=== PATIENT | female | born 1960 | race Caucasian/White ===

== ENCOUNTER 2019-02-16 17:36 | Emergency (ER) | payer OTHER ==
[~2019-02-16] VITALS: Ht 160 cm; Wt 87.2 kg
[~2019-02-16 17:36] MED LIST: AMOX500C2 PO
[2019-02-16 17:39] VITALS: Ht 160 cm; Wt 87.2 kg
--- NOTE | 2019-02-16 19:05 | ERD ---
ER Documentation Chief Complaint Chief Complaint RT EAR PAIN X 1 DAY HPI 59-year-old female presents with complaint of right ear pain secondary to Q-tip stuck in the ear. States that the incident occurred this morning. Denies any treatments. Denies any hearing loss, fevers, chills, discharge from the ear. ROS All systems reviewed and are negative except as per history of present illness. Medications Home Meds Active Scripts Amoxicillin* (Amoxicillin*) 500 Mg Cap, 500 MG PO TID for otitis media for 10 Days, CAP Prov:VIRGINIA COWART 02/16/19 Amoxicillin* (Amoxicillin*) 500 Mg Cap, 500 MG PO TID for 10 Days, CAP Prov:VINNY GOMEZ DO 12/04/15 PMhx/Soc Hx Alcohol Use: No Hx Substance Use: No Hx Tobacco Use: No Smoking Status: Never smoker FmHx Family History: No diabetes, No coronary disease, No other Physical Exam Vitals Vital Signs Date Temp Pulse Resp B/P (MAP) Pulse Ox O2 O2 Flow FiO2 Time Delivery Rate 02/16/19 98.1 86 18 168/89 99 17:39 (115) Physical Exam Const: No acute distress Head: Atraumatic Eyes: Normal Conjunctiva ENT: Normal External Ears, Nose and Mouth. Right ear is occluded with cotton. No blood or discharge noted. TM is not visualized. Neck: Full range of motion. No meningismus. Resp: Clear to auscultation bilaterally Cardio: Regular rate and rhythm, no murmurs Abd: Soft, non tender, non distended. Normal bowel sounds Skin: No petechiae or rashes Back: No midline or flank tenderness Ext: No cyanosis, or edema Neur: Awake and alert Psych: Normal Mood and Affect Procedures/MDM MDM: Cotton was successfully removed from the ear using alligator forceps. There was a ruptured TM noted. There is no discharge or blood noted. Patient was given Rx for amoxicillin and advised to follow-up with ENT within 24 hours. Low suspicion for retained foreign body, malignant otitis externa, or any other emergent condition. Patient discharged with strict ER precautions. Patient advised to follow up with PMD. All questions answered at discharge. Departure Diagnosis: Primary Impression: Foreign body in ear Additional Impression: Right otitis media Condition: Stable VIRGINIA COWART February 16, 2019 19:05
[2019-02-16] MEDS ORDERED: AMOX500C2 PO (20:03)
[2019-02-16 20:15] VITALS: BP 165/85; PULSE 89; RESP 18
== END 2019-02-16 20:17 | disposition home or self-care (01) ==
LOC: FTE 17:36
DX: T16.1XXA Foreign body in right ear, initial encounter (principal); H66.91 Otitis media, unspecified, right ear; X58.XXXA Exposure to other specified factors, initial encounter; Y92.9 Unspecified place or not applicable
CPT/HCPCS: 69200; Z7502